=== PATIENT | male | born 1990 | race Caucasian/White ===

== ENCOUNTER 2018-08-27 22:32 | Emergency (ER) | payer BC ==
[2018-08-27 22:45] VITALS: BP 161/72
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
== END 2018-08-27 23:55 | disposition home or self-care (01) ==
LOC: JP.ED 22:32
DX: S80.01XA Contusion of right knee, initial encounter (principal); I10 Essential (primary) hypertension; F17.210 Nicotine dependence, cigarettes, uncomplicated; Z91.040 Latex allergy status; Z88.0 Allergy status to penicillin; W22.8XXA Striking against or struck by other objects, initial encounter
CPT/HCPCS: 73562-RT; 99283-25

== ENCOUNTER 2019-12-27 16:29 | Emergency (ER) | payer BC ==
[2019-12-27 17:01] VITALS: BP 140/76; PULSE 86
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
== END 2019-12-27 17:57 | disposition home or self-care (01) ==
LOC: JP.ED 16:29
DX: G43.B0 Ophthalmoplegic migraine, not intractable (principal); I10 Essential (primary) hypertension; F17.210 Nicotine dependence, cigarettes, uncomplicated; Z91.040 Latex allergy status; Z88.0 Allergy status to penicillin
CPT/HCPCS: 99283

== ENCOUNTER 2022-06-03 09:33 | Emergency (ER) | payer BC ==
[2022-06-03 09:48] VITALS: BP 127/68; PULSE 108
[2022-06-03] MEDS ORDERED: Lidocaine 1% with EPINEPHrine 1:100,000 50 ML MDV SUBCUT STA (10:06)
[2022-06-03] MEDS ORDERED: Bacitracin Oint 1 GM U/D Packet TOP ONE (10:06)
== END 2022-06-03 12:57 | disposition home or self-care (01) ==
LOC: JP.ED 09:33
DX: S02.31XA Fracture of orbital floor, right side, initial encounter for closed fracture (principal); I10 Essential (primary) hypertension; Z91.040 Latex allergy status; Z88.0 Allergy status to penicillin; Z72.0 Tobacco use
CPT/HCPCS: 12011; 70450; 70486; 99282; 99283

== ENCOUNTER 2024-02-03 17:37 | Emergency (ER) | payer BC ==
[2024-02-03 19:43] VITALS: BP 119/80; PULSE 74
== END 2024-02-03 20:20 | disposition home or self-care (01) ==
LOC: JP.ED 17:37
DX: M62.830 Muscle spasm of back (principal); I10 Essential (primary) hypertension; Z88.0 Allergy status to penicillin; Z91.040 Latex allergy status
CPT/HCPCS: 99283

== ENCOUNTER 2025-02-01 18:21 | Emergency (ER) | payer BC, MEDICAID ==
[2025-02-01 19:45] VITALS: BP 115/73; PULSE 83
== END 2025-02-01 19:48 | disposition home or self-care (01) ==
LOC: JP.ED 18:21
DX: J06.9 Acute upper respiratory infection, unspecified (principal); I10 Essential (primary) hypertension; F17.200 Nicotine dependence, unspecified, uncomplicated; Z88.0 Allergy status to penicillin; Z91.040 Latex allergy status
CPT/HCPCS: 99284